=== PATIENT | male | born 1965 | race Caucasian/White ===

== ENCOUNTER 2023-06-23 13:11 | Emergency (ER) | payer OTHER, SELFPAY ==
[2023-06-23] VITALS (9 sets, daily range): BP systolic 141–159; BP diastolic 86–102; PULSE 66–86; RESP 10–20; TEMP 35.8; O2SAT 96–100; BMI 28.5
--- NOTE | 2023-06-23 13:55 | RAD_ITS ---
STUDY: X-RAY - LEFT WRIST REASON FOR EXAM: Male, 57 years old. Left wrist pain following a fall. TECHNIQUE: 3 view(s) of the wrist were obtained. COMPARISON: None. FINDINGS: There is a comminuted nondisplaced fracture involving the distal radial metaphysis with extension to the articular surface. There is evidence of dorsal facing. Avulsion fracture of the ulnar styloid. Normal radiocarpal articulation. Normal distal radioulnar articulation. Normal carpal bones. Normal carpal articulations. Normal carpometacarpal articulation of the thumb. Normal second through fifth carpometacarpal articulations. Normal visualized metacarpal bones. Soft tissue swelling. RAD/Wrist min 3 Views IMPRESSION: Comminuted fracture of the distal radial metaphysis with extension of the articular surface. There is evidence of dorsal facing. Avulsion fracture of the ulnar styloid. Soft tissue swelling. Electronically Signed: Rudy Braden MD at 14:14 EST ,
--- NOTE | 2023-06-23 15:28 | EDS_ITS ---
HPI History of Present Illness HPI Narrative: Patient presents with left wrist injury that occurred today. Patient states she jumped off the back of a truck and fell when he landed. Patient states he fell backwards and landed on his outstretched left wrist. Patient states that the jump was approximately 4 feet. Patient describes his pain as dull. Patient states the pain is worse with any movement. Patient states it is better with rest. Patient denies any paresthesias or weakness. Patient denies any head injury or loss of consciousness. Patient denies any other injuries. Chief Complaint: Upper Extremity Injury Informant: patient Occured/Mechanism Mechanism/Context: Yes fall Onset/Context/Timing Onset: Today Context: Sudden Onset Timing: Continuous Quality of Pain: Dull Location: Left wrist Worsened by: Movement Relieved by: Rest Associated Symptoms Associated Symptoms: Negative for Parasthesia, Weakness or Loss of Funtion [facility] [place] Medical History (Updated 06/23/23 @ 15:[address] Armando Ayon DO) Diabetes Hypothyroidism Home Medications hydrocodone-acetaminophen 5-325mg 5mg-325mg 1 tab PO Q6H PRN PRN Pain 3 days #10 TABLETS 06/23/23 [Rx Last Taken Unknown] insulin lispro 100 unit/mL subcutaneous solution (Humalog U-100 Insulin) 06/23/23 [History Last Taken Unknown] levothyroxine 112 mcg tablet (Synthroid) 112 mcg PO DAILY 06/23/23 [History Last Taken Unknown] metformin 1,000 mg tablet 1,000 mg PO BIDAC 06/23/23 [History Last Taken U nknown] pioglitazone 30 mg tablet 30 mg PO DAILY 06/23/23 [History Last Taken Unknown] rosuvastatin 20 mg tablet 20 mg PO DAILY 06/23/23 [History Last Taken Unknown] Allergy/AdvReac Type Severity Reaction Status Date / Time No Known Allergies Allergy Verified 06/23/23 13:15 Surgical History no surgical history no surgical history Social History Smoking Status: Never smoker ROS ROS ED Constitutional Constitutional ED: Denies chills or fever(s) Eyes Eyes: Denies blurry vision or change in vision ENT ENT ED: Denies rhinorrhea or sore throat Cardiovascular Cardiovascular: Denies chest pain or palpitations Respiratory/Chest Respiratory/Chest: Denies cough or dyspnea Gastrointestinal Gastrointestinal: Denies nausea or vomiting Genitourinary Genitourinary ED: Denies dysuria or hematuria Musculoskeletal Musculoskeletal: Denies back pain or neck pain Integumentary Denies abscess or rash Neurologic Neurologic: Denies headache(s) or weakness Allergic/Immunologic Allergic/Immunologic ED: Denies mouth swelling or urticaria EXAM Physical Exam Const Vital Signs: 06/23/23 13:12 06/23/23 13:14 Temperature 96.4 F L Temperature Source Temporal Pulse Rate 83 Respiratory Rate 18 Blood Pressure 152/86 H Blood Pressure Mean 108 Pulse Ox 97 Oxygen Delivery Method Room Air Positive well nourished and well developed General Appearance ED: well developed and NAD HEENT Reports moist mucous membranes Neck full ROM and supple Resp normal respiratory effort and clear to auscultation bilaterally Cardio regular rate and regular rhythm GI non-tender and non-distended Palpation: soft Extremity Extremity Narrative: There is tenderness and edema over the left wrist. Range of motion was limited in all motions of the left wrist secondary to pain. There is a questionable deformity noted. Radial pulses are equal bilaterally. Sensation was intact to light touch in the radial, median, and ulnar areas. Strength is 5/5 in the radi al, median, and ulnar areas. General Extremety ED: Yes edema General Extremity: edema Neuro oriented x3, CN's II-XII intact bilaterally, moves all extremities, no focal motor deficits and no sensory deficits noted Sensorium / Orientation: alert Motor Exam: strength 5/5 throughout Psych mental status grossly normal MDM MDM MDM Narrative Medical decision making narrative: Differential diagnosis includes wrist fracture, sprain, and contusion. X-rays of the left wrist will be obtained to assess for fracture. Radiography Diagnostic Testing: Clinical Impression(s) from Imaging Studies Wrist X-Ray 06/23/23 13:55 IMPRESSION: Comminuted fracture of the distal radial metaphysis with extension of the articular surface. There is evidence of dorsal facing. Avulsion fracture of the ulnar styloid. Soft tissue swelling. Electronically Signed: Rudy Braden MD at 14:14 EST , X-rays of the left wrist were obtained. There are 3 views. On my independent interpretation, there is a comminuted fracture of the left distal radius extending into the radial carpal joint and radial ulnar joint. There is some displacement of the distal fragment dorsally. Radiologist also interpreted the x-rays and agrees. Repeat x-rays of the left wrist were obtained. There are 3 views. On my independent interpretation, there is improved alignment of the fracture fragments. AP splint is in place. Radiologist also interpreted the x-rays and agrees. Treatment and Re-Evaluation Narrative: Patient was advised of his findings. Patient was advised of the need for sedation and reduction. Patient is agreeable with this. Informed consent was obtained. Patient was placed on continuous cardiac and pulse oximeter monitors. IV line was established. Patient was given 70 mg propofol. The fracture was reduced using traction and finger traps. Well-padded custom made AP splint using 3 inch Ortho-Glass was applied. Patient tolerated the procedure well. Neurovascular exam was intact before and after the procedure. Patient was given a prescription for [place]. Patient was instructed to ice and elevate the left wrist. Patient was instructed to follow-up with an orthopedic surgeon when he gets back home next week. Patient understood and was agreeable with the plan. All questions were answered. Procedures Upper Extremity Splints Upper Extremity Splint: Orthoglass and Volar (AP short arm) Splint Fabrication: Fabricated Location: Left Procedural Sedation 1 (Initial Baseline): Consent Signed: Yes Any Problems With Anesthesia: No You/Your family experience fever (hyperthermia) w/anesthesia: No Sedation medication: Propofol Dose: 70 Route: IV [place]iampati Score: Class I ASA Classification: II Discharge Plan Triage Chief Complaint: Upper Extremity Injury ED Provider: Armando Ayon Dx/Rx/DC Orders Clinical Impression: Fracture of distal end of left radius, Fall Instructions: ED Fracture, Wrist, General Prescriptions: New hydrocodone-acetaminophen [hydrocodone-acetaminophen] 5-325 mg tablet 1 tab PO Q6H PRN PRN (Reason: Pain) 3 Days Qty: 10 0RF No Action rosuvastatin 20 mg tablet 20 mg PO DAILY Patient Comments: TAKE 1 TABLET BY MOUTH EVERY DAY FOR 90 DAYS metformin 1,000 mg tablet 1,000 mg PO BIDAC pioglitazone 30 mg tablet 30 mg PO DAILY levothyroxine [Synthroid] 112 mcg tablet 112 mcg PO DAILY insulin lispro [Humalog U-100 Insulin] 100 unit/mL solution Primary Care Provider: Care Physician,No Primary Activity Restrictions/Additional Instructions: Follow-up with your primary care physician when you get back home. Also follow- up with your orthopedic surgeon. Disposition Disposition: Home, Self Care
[2023-06-23] MEDS: Propofol 200 MG/20 ML Vial IV BOLUS (15:56)
[2023-06-23] MEDS: Morphine 4 MG/ML Syringe IV (15:56)
--- NOTE | 2023-06-23 17:20 | RAD_ITS ---
STUDY: X-RAY - LEFT WRIST REASON FOR EXAM: Male, 57 years old. Injury/Pain -- Postreduction TECHNIQUE: 3 view(s) of the wrist were obtained. COMPARISON: June 23, 2023 1:58 PM FINDINGS: Status post closed reduction and casting of impacted distal radial fracture with mild overlapping of fracture fragments and and ulnar styloid fracture with mild separation of fracture fragments. RAD/Wrist min 3 Views IMPRESSION: Status post closed reduction of distal radial and ulnar fractures Electronically Signed: Fabricio Valencia MD at 17:39 EST ,
== END 2023-06-23 18:13 | disposition home or self-care (01) ==
PROVIDERS: Emergency Provider Emergency Medicine; Visit Provider Emergency Medicine
DX: S52.502A Unspecified fracture of the lower end of left radius, initial encounter for closed fracture (principal); E11.9 Type 2 diabetes mellitus without complications; Z79.4 Long term (current) use of insulin; E03.9 Hypothyroidism, unspecified; W17.89XA Other fall from one level to another, initial encounter; Y92.812 Truck as the place of occurrence of the external cause; Y99.0 Civilian activity done for income or pay; Z79.84 Long term (current) use of oral hypoglycemic drugs; Z79.890 Hormone replacement therapy; Z79.899 Other long term (current) drug therapy
CPT/HCPCS: 25605; 73110; 96374; 99152; 99283; J7030; A4216